=== PATIENT | male | born 1985 | race Caucasian/White ===

== ENCOUNTER 2017-05-01 06:05 | Observation (INO) | payer SELFPAY ==
[2017-05-01] MEDS ORDERED: Aspirin 81 MG Tab.Chew PO ONE (06:19)
[2017-05-01] MEDS ORDERED: Sodium Chloride 0.9% 2.5 ML Syringe FLUSH PRN (06:19)
[2017-05-01] MEDS ORDERED: Sodium Chloride 0.9% 10 ML Syringe FLUSH PRN (06:19)
[2017-05-01] MEDS ORDERED: Nitroglycerin 0.4 MG Tab.SL ONE (06:20)
[2017-05-01] MEDS ORDERED: Aspirin 81 MG Tab.Chew ONE (06:20)
[2017-05-01] MEDS: Nitroglycerin 0.4 MG Tab.SL SL SCH ×3 (06:26→06:37)
--- NOTE | 2017-05-01 06:30 | EDM.PDOC ---
ED HPI GENERAL MEDICAL PROBLEM - General Chief Complaint: Chest Pain Stated Complaint: CHEST PAIN Time Seen by Provider: 05/01/17 06:09 - History of Present Illness INITIAL COMMENTS - FREE TEXT/NARRATIVE: HISTORY AND PHYSICAL: History of present illness: The patient is a 31-year-old male with no stated cardiac pulmonary history who presents with acute onset of left-sided chest pain that woke him from sleep at 3 AM this morning. Patient said he adequately normal day yesterday and had a little abdominal discomfort but nothing that he would seek medical care for any eating drink normally. The patient said he was trying to quit smoking and in fact didn't smoke for day and a half and then did smoke yesterday. Does not use drugs and he has no prior cardiac testing or chest pain history. The patient says he went to bed and was sleeping normally when he woke suddenly from sleep at 3 AM with the chest discomfort which was left-sided radiating to her shoulder. At 3 AM he rated as a 7-8/10. The patient said he went back to sleep and woke up again at 4:30 and it had returned and he took one 81 mg aspirin. Currently he rates the chest pain as a 5/10. It is not associated with shortness of breath abdominal pain nausea lightheadedness or back pain. He says he has never had an episode like this before and he did no strenuous activity yesterday and had no upper respiratory symptoms. When he was initially brought back he did not feel sweaty but now in the department he does feel sweaty. He has no significant family history of cardiac disease and he has never been tested for cholesterol or lipid panel nor has he ever done a stress test. 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 He has no leg pain or swelling. The patient tells me he does have a history of hypertension but he has had episodes of elevated blood pressure but not as high as he is having this morning. 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 Review of systems: As per history of present illness and below otherwise all systems reviewed and negative. Past medical history: As per history of present illness and as reviewed below otherwise noncontributory. Surgical history: As per history of present illness and as reviewed below otherwise noncontributory. Social history: No reported history of drug or alcohol abuse. Family history: As per history of present illness and as reviewed below otherwise noncontributory. Physical exam: Gen.: Well-developed mildly overweight male who is nontoxic and vital signs been reviewed by me including his elevated blood pressure. HEENT: Atraumatic, normocephalic, pupils reactive, negative for conjunctival pallor or scleral icterus, mucous membranes moist, throat clear, neck supple, nontender, trachea midline. Lungs: Clear to auscultation, breath sounds equal bilaterally, chest nontender. Heart: S1S2, regular, negative for clicks, rubs, or JVD. Abdomen: Soft, nondistended, nontender. Negative for masses or hepatosplenomegaly. Negative for costovertebral tenderness. Pelvis: Stable nontender. Genitourinary: Deferred. Rectal: Deferred. Extremities: Atraumatic, negative for cords or calf pain. Neurovascular unremarkable. no pedal edema or leg asymmetry Neuro: Awake, alert, oriented. Cranial nerves II through XII unremarkable. Cerebellum unremarkable. Motor and sensory unremarkable throughout. Exam nonfocal. Skin: Normal turgor there is facial diaphoresis and there is no evidence of any rashes or lesions Diagnostics: EKG CBC CMP INR troponin chest x-ray Therapeutics: IV O2 monitor, 3 baby aspirin as patient took one at home, sublingual nitroglycerin, nitroglycerin paste 0635: After 3 sublingual nitroglycerin the patient's blood pressure is much improved at 140s over 90s and his chest pain is gone. I discussed with him the probability and need for observation admission and pending the lab results he is agreeable to do this. 0642: Case was discussed with our hospitalist Dr. Simmons who accepts the patient for observation admission and is aware that the labs had to be redrawn due to hemolysis. He says he will follow up all the lab results and agrees with the Nitropaste. I will endorse the case to Dr. Shell to be aware of this patient and to intervene as needed and necessary and to check the labs as well the chest x-ray Impression: Chest pain rule out ACS Definitive disposition and diagnosis as appropriate pending reevaluation and review of above. Left Chest Pain Score (Numeric/FACES): 4 - Related Data Allergies Allergy/AdvReac Type Severity Reaction Status Date / Time No Known Allergies Allergy Verified 05/01/17 06:14 Home Meds: Home Meds . [No Known Home Meds] 05/01/17 [History] ED ROS GENERAL - Review of Systems Review Of Systems: ROS reveals no pertinent complaints other than HPI. ED EXAM, GENERAL - Physical Exam Exam: See Below (See dictation) Course - Vital Signs Last Recorded V/S: Last Vital Signs Temp 36.7 C 05/01/17 06:15 Pulse 70 05/01/17 06:15 Resp 16 05/01/17 06:15 BP 165/114 H 05/01/17 06:15 Pulse Ox 99 05/01/17 06:15 - Orders/Labs/Meds Orders: Active Orders 24 hr Category Date Time Status Patient Status [ADT] Stat ADT 05/01/17 06:42 Ordered Cardiac Monitoring [RC] . DIRECTED Care 05/01/17 06:19 Active EKG Documentation Completion [RC] STAT Care 05/01/17 06:19 Active Oxygen Therapy, ED [RC] ASDIRECTED Care 05/01/17 06:19 Active Pulse Oximetry [RC] ASDIRECTED Care 05/01/17 06:19 Active Chest 1V Frontal [CR] Stat Exams 05/01/17 06:19 Ordered CBC WITH AUTO DIFF [HEME] Stat Lab 05/01/17 06:19 Ordered COMPREHENSIVE METABOLIC PN,CMP [CHEM] Stat Lab 05/01/17 06:19 Ordered INR,PT,PROTHROMBIN TIME [COAG] Stat Lab 05/01/17 06:19 Ordered TROPONIN I [CHEM] Stat Lab 05/01/17 06:19 Ordered Aspirin Med 05/01/17 06:20 Once 243 mg .ROUTE .STK-MED ONE Aspirin Med 05/01/17 06:19 Once 243 mg PO ONETIME ONE Nitroglycerin [Nitro-Bid 2%] Med 05/01/17 06:42 Once 0.5 gm TOP ONETIME ONE Nitroglycerin [Nitrostat] Med 05/01/17 06:30 Ordered 0.4 mg SL Q5M Sodium Chloride 0.9% [Saline Flush] Med 05/01/17 06:19 Ordered 10 ml FLUSH ASDIRECTED PRN Sodium Chloride 0.9% [Saline Flush] Med 05/01/17 06:19 Ordered 2.5 ml FLUSH ASDIRECTED PRN Saline Lock Insert [OM.PC] Stat Oth 05/01/17 06:19 Ordered Medication Orders Sodium Chloride (Saline Flush) 10 ml FLUSH ASDIRECTED PRN PRN Reason: Keep Vein Open Sodium Chloride (Saline Flush) 2.5 ml FLUSH ASDIRECTED PRN PRN Reason: Keep Vein Open Meds: Medications Generic Name Dose Route Start Last Admin Trade Name Freq PRN Reason Stop Dose Admin Sodium Chloride 10 ml 05/01/17 06:19 Saline Flush FLUSH ASDIRECTED PRN Keep Vein Open Sodium Chloride 2.5 ml 05/01/17 06:19 Saline Flush FLUSH ASDIRECTED PRN Keep Vein Open Discontinued Medications Generic Name Dose Route Start Last Admin Trade Name Freq PRN Reason Stop Dose Admin Aspirin Confirm 05/01/17 06:20 Aspirin Administered 05/01/17 06:21 Dose 243 mg .ROUTE .STK-MED ONE Aspirin 243 mg 05/01/17 06:19 Aspirin PO 05/01/17 06:20 ONETIME ONE Nitroglycerin Confirm 05/01/17 06:20 Nitrostat Administered 05/01/17 06:21 Dose 0.4 mg .ROUTE .STK-MED ONE Nitroglycerin 0.4 mg 05/01/17 06:30 Nitrostat SL 05/01/17 06:41 Q5M MARTIN Departure - Departure Time of Disposition: 06:48 Disposition: Refer to Observation Condition: Good Clinical Impression: Acute coronary syndrome - Discharge Information Forms: ED Department Discharge - My Orders Last 24 Hours: My Active Orders 05/01/17 06:19 Cardiac Monitoring [RC] . DIRECTED EKG Documentation Completion [RC] STAT Oxygen Therapy, ED [RC] ASDIRECTED Pulse Oximetry [RC] ASDIRECTED Chest 1V Frontal [CR] Stat CBC WITH AUTO DIFF [HEME] Stat COMPREHENSIVE METABOLIC PN,CMP [CHEM] Stat INR,PT,PROTHROMBIN TIME [COAG] Stat TROPONIN I [CHEM] Stat Aspirin 243 mg PO ONETIME ONE Sodium Chloride 0.9% [Saline Flush] 10 ml FLUSH ASDIRECTED PRN Sodium Chloride 0.9% [Saline Flush] 2.5 ml FLUSH ASDIRECTED PRN Saline Lock Insert [OM.PC] Stat 05/01/17 06:30 Nitroglycerin [Nitrostat] 0.4 mg SL Q5M 05/01/17 06:42 Patient Status [ADT] Stat Nitroglycerin [Nitro-Bid 2%] 0.5 gm TOP ONETIME ONE - Assessment/Plan Last 24 Hours: My Active Orders 05/01/17 06:19 Cardiac Monitoring [RC] . DIRECTED EKG Documentation Completion [RC] STAT Oxygen Therapy, ED [RC] ASDIRECTED Pulse Oximetry [RC] ASDIRECTED Chest 1V Frontal [CR] Stat CBC WITH AUTO DIFF [HEME] Stat COMPREHENSIVE METABOLIC PN,CMP [CHEM] Stat INR,PT,PROTHROMBIN TIME [COAG] Stat TROPONIN I [CHEM] Stat Aspirin 243 mg PO ONETIME ONE Sodium Chloride 0.9% [Saline Flush] 10 ml FLUSH ASDIRECTED PRN Sodium Chloride 0.9% [Saline Flush] 2.5 ml FLUSH ASDIRECTED PRN Saline Lock Insert [OM.PC] Stat 05/01/17 06:30 Nitroglycerin [Nitrostat] 0.4 mg SL Q5M 05/01/17 06:42 Patient Status [ADT] Stat Nitroglycerin [Nitro-Bid 2%] 0.5 gm TOP ONETIME ONE
[2017-05-01] MEDS ORDERED: Nitroglycerin 2% Oint 1 GM UD Packet TOP ONE ×2 (06:42→12:57)
[2017-05-01] MEDS ORDERED: Nitroglycerin 2% Oint 1 GM UD Packet ONE (06:46)
[2017-05-01] MEDS ORDERED: Sodium Chloride 0.9% 1,000 ML IV ONE (06:53)
[2017-05-01 07:17] LABS: CHLORIDE,CL 107 mmol/L (98-110); SODIUM,NA 139 mmol/L (136-146)
[2017-05-01] MEDS ORDERED: Acetaminophen 325 MG Tab PO PRN (08:46)
[2017-05-01] MEDS ORDERED: Temazepam 15 MG Cap PO PRN (08:46)
--- NOTE | 2017-05-01 08:57 | PCM.HP ---
H&P History of Present Illness - General Date of Service: 05/01/17 Admit Problem/Dx: Admission Diagnosis/Problem Admission Diagnosis/Problem Chest pain Source of Information: Patient, Provider - History of Present Illness Initial Comments - Free Text/Narative: He awoke from sleep about 0200 with chest pain. He took aspirin, went back to sleep and awoke with left sided chest pain. He came to the ER where he was noted to have a blood pressure of 170/110 mm Hg. He is asymptomatic now. He is trying to quit smoking. Left Chest Pain Score (Numeric/FACES): 4 - Related Data Allergies/Adverse Reactions: Allergies Allergy/AdvReac Type Severity Reaction Status Date / Time No Known Allergies Allergy Verified 05/01/17 06:14 Home Medications: Home Meds . [No Known Home Meds] 05/01/17 [History] Past Medical History Cardiovascular History: Denies: Heart Failure, High Cholesterol, Hypertension Respiratory History: Denies: COPD Gastrointestinal History: Denies: Cirrhosis Genitourinary History: Denies: Chronic Renal Insuffiency Neurological History: Denies: CVA Endocrine/Metabolic History: Denies: Diabetes, Type I, Diabetes, Type II Oncologic (Cancer) History: Reports: None - Past Surgical History Musculoskeletal Surgical History: Reports: Arthroscopic Procedure Social & Family History - Family History Family Medical History: Noncontributory - Tobacco Use Smoking Status *Q: Current Every Day Smoker Years of Tobacco use: 15 Packs/Tins Daily: 1 - Alcohol Use Alcohol Use Comment: rare alcohol use - Recreational Drug Use Recreational Drug Use: No H&P Review of Systems - Review of Systems: Review Of Systems: See Below General: Denies: Fever, Chills Pulmonary: Denies: Shortness of Breath, Wheezing, Cough, Sputum, Hemoptysis Cardiovascular: Reports: Chest Pain Gastrointestinal: Denies: Abdominal Pain, Black Stool, Bloody Stool, Hematemesis , Hematochezia Genitourinary: Denies: Hematuria Exam - Exam Exam: See Below - Vital Signs Vital Signs: Last Vital Signs Temp 97.0 F 05/01/17 08:17 Pulse 61 05/01/17 08:17 Resp 20 05/01/17 08:17 BP 174/96 H 05/01/17 08:17 Pulse Ox 98 05/01/17 08:17 Weight: 107 kg - Exam General: Alert, Oriented HEENT: Mucosa Moist & [place] Neck: Supple, Trachea Midline Lungs: Clear to Auscultation, Normal Respiratory Effort Cardiovascular: Regular Rate, Regular Rhythm GI/Abdominal Exam: Soft, Non-Tender (Male) Exam: Deferred Rectal (Males) Exam: Deferred Extremities: No Pedal Edema Neurological: Cranial Nerves Intact, Normal Speech Neuro Extensive - Motor, Sensory, Reflexes: No: Facial palsy (L), Facial Palsy ( R), Hemeplagia (R), Hemeplagia (L) Psychiatric: Alert - Patient Data Lab Results Last 24 hrs: Laboratory Results - last 24 hr 05/01/17 05/01/17 05/01/17 Range/Units 06:47 06:47 06:47 WBC 12.02 H (4.0-11.0) K/uL RBC 5.30 (4.50-5.90) M/uL Hgb 16.2 (13.0-17.0) g/dL Hct 47.7 (38.0-50.0) % MCV 90.0 (80.0-98.0) fL MCH 30.6 (27.0-32.0) pg MCHC 34.0 (31.0-37.0) g/dL RDW Std Deviation 43.0 (28.0-62.0) fl RDW Coeff of Douglas 13 (11.0-15.0) % Plt Count 255 (150-400) K/uL MPV 10.60 (7.40-12.00) fL Neut % (Auto) 78.0 (48.0-80.0) % Lymph % (Auto) 15.1 L (16.0-40.0) % [place] % (Auto) 5.6 (0.0-15.0) % Eos % (Auto) 1.1 (0.0-7.0) % Baso % (Auto) 0.2 (0.0-1.5) % Neut # (Auto) 9.4 H (1.4-5.7) K/uL Lymph # (Auto) 1.8 (0.6-2.4) K/uL [place] # (Auto) 0.7 (0.0-0.8) K/uL Eos # (Auto) 0.1 (0.0-0.7) K/uL Baso # (Auto) 0.0 (0.0-0.1) K/uL Nucleated RBC % 0.0 /100WBC Nucleated RBCs # 0 K/uL INR 1.00 (0.86-1.11) APTT 25.5 (18.6-31.3) SEC Sodium 139 (136-146) mmol/L Potassium 4.5 (3.5-5.1) mmol/L Chloride 107 (98-110) mmol/L Carbon Dioxide 24 (21-31) mmol/L BUN 11 (6.0-23.0) mg/dL Creatinine 0.9 (0.6-1.5) mg/dL Est Cr Clr Drug Dosing 128.14 mL/min Estimated GFR (MDRD) > 60.0 ml/min Glucose 105 (60-110) mg/dL Calcium 9.2 (8.8-10.8) mg/dL Magnesium (1.5-2.3) mEq/L Total Bilirubin 0.5 (0.1-1.5) mg/dL AST 21 (5-40) IU/L ALT 29 (8-54) IU/L Alkaline Phosphatase 57 (40-150) Troponin I < 0.10 (0.0-0.29) NG/ML Total Protein 7.1 (6.0-8.0) g/dL Albumin 4.2 (3.5-5.0) g/dL Globulin 2.9 (2.0-3.5) g/dL Albumin/Globulin Ratio 1.4 (1.3-2.8) 05/01/17 Range/Units 06:47 WBC (4.0-11.0) K/uL RBC (4.50-5.90) M/uL Hgb (13.0-17.0) g/dL Hct (38.0-50.0) % MCV (80.0-98.0) fL MCH (27.0-32.0) pg MCHC (31.0-37.0) g/dL RDW Std Deviation (28.0-62.0) fl RDW Coeff of Douglas (11.0-15.0) % Plt Count (150-400) K/uL MPV (7.40-12.00) fL Neut % (Auto) (48.0-80.0) % Lymph % (Auto) (16.0-40.0) % [place] % (Auto) (0.0-15.0) % Eos % (Auto) (0.0-7.0) % Baso % (Auto) (0.0-1.5) % Neut # (Auto) (1.4-5.7) K/uL Lymph # (Auto) (0.6-2.4) K/uL [place] # (Auto) (0.0-0.8) K/uL Eos # (Auto) (0.0-0.7) K/uL Baso # (Auto) (0.0-0.1) K/uL Nucleated RBC % /100WBC Nucleated RBCs # K/uL INR (0.86-1.11) APTT (18.6-31.3) SEC Sodium (136-146) mmol/L Potassium (3.5-5.1) mmol/L Chloride (98-110) mmol/L Carbon Dioxide (21-31) mmol/L BUN (6.0-23.0) mg/dL Creatinine (0.6-1.5) mg/dL Est Cr Clr Drug Dosing mL/min Estimated GFR (MDRD) ml/min Glucose (60-110) mg/dL Calcium (8.8-10.8) mg/dL Magnesium 1.8 (1.5-2.3) mEq/L Total Bilirubin (0.1-1.5) mg/dL AST (5-40) IU/L ALT (8-54) IU/L Alkaline Phosphatase (40-150) Troponin I (0.0-0.29) NG/ML Total Protein (6.0-8.0) g/dL Albumin (3.5-5.0) g/dL Globulin (2.0-3.5) g/dL Albumin/Globulin Ratio (1.3-2.8) Result Diagrams: 05/01/17 06:47 05/01/17 06:47 *Q Meaningful Use (ADM) - VTE *Q VTE Criteria *Q: - Stroke *Q Stroke Criteria *Q: - AMI *Q AMI Criteria *Q: - Problem List (1) Chest pain SNOMED Code(s): 75838495 ICD Code: R07.9 - CHEST PAIN, UNSPECIFIED Status: Acute Current Visit: Yes (2) Hypertension SNOMED Code(s): 96027698 ICD Code: I10 - ESSENTIAL (PRIMARY) HYPERTENSION Status: Acute Current Visit: Yes Problem List Initiated/Reviewed/Updated: Yes Orders Last 24hrs: Active Orders 24 hr Category Date Time Status Communication Order [RC] PER UNIT ROUTINE Care 05/01/17 08:46 Ordered EKG Documentation Completion [RC] ROUTINE Care 05/01/17 12:00 Ordered Oxygen Therapy [RC] PRN Care 05/01/17 08:46 Ordered VTE/DVT Education [RC] PER UNIT ROUTINE Care 05/01/17 08:46 Ordered Vital Signs [RC] Q4H Care 05/01/17 08:46 Ordered Regular Diet [DIET] Diet 05/01/17 Breakfast Ordered LIPID PANEL [CHEM] Routine Lab 05/01/17 08:45 Ordered MAGNESIUM [CHEM] Routine Lab 05/01/17 08:45 Ordered TROPONIN I [CHEM] Q6H Lab 05/01/17 12:00 Ordered TROPONIN I [CHEM] Q6H Lab 05/01/17 18:00 Ordered Acetaminophen [Tylenol] Med 05/01/17 08:46 Ordered 650 mg PO Q4H PRN Aspirin Med 05/02/17 09:00 Ordered 81 mg PO DAILY Lisinopril [Prinivil] Med 05/01/17 09:00 Ordered 20 mg PO DAILY Nitroglycerin [Nitro-Bid 2%] Med 05/01/17 06:46 Once 1 gm .ROUTE .STK-MED ONE Sodium Chloride 0.9% [Normal Saline] 1,000 ml Med 05/01/17 06:53 Active IV STAT Temazepam [Restoril] Med 05/01/17 08:46 Ordered 15 mg PO BEDTIME PRN Resuscitation Status Routine Resus Stat 05/01/17 08:46 Ordered Medication Orders Acetaminophen (Tylenol) 650 mg PO Q4H PRN PRN Reason: Pain (Mild 1-3)/fever Aspirin (Aspirin) 81 mg PO DAILY MARTIN Sodium Chloride (Normal Saline) 1,000 mls @ 100 mls/hr IV STAT ONE Stop: 05/01/17 16:52 Last Admin: 05/01/17 06:27 Dose: 100 mls/hr Lisinopril (Prinivil) 20 mg PO DAILY MARTIN Sodium Chloride (Saline Flush) 10 ml FLUSH ASDIRECTED PRN PRN Reason: Keep Vein Open Sodium Chloride (Saline Flush) 2.5 ml FLUSH ASDIRECTED PRN PRN Reason: Keep Vein Open Temazepam (Restoril) 15 mg PO BEDTIME PRN PRN Reason: Sleep Assessment/Plan Comment:: EKG shows ST elevation c/w early repolarization serial troponins/ repeat EKG treat HTN lipid panel arrange outpatient stress discharge this evening if stable. Jaycob Simmons MD
[2017-05-01] MEDS ORDERED: Lisinopril 10 MG Tab PO SCH (09:00)
--- NOTE | 2017-05-01 10:39 | CR ---
EXAM DATE: 05/01/17 PATIENT'S AGE: 31 Patient: WILLIAM QUINONEZ Facility: [place], [place] Site . Site : [id number] Study: XRay Chest [id number] 7:06:41 AM Ordering Physician: Mejia Almendarez Final Report: INDICATION: Chest pain COMPARISON: none TECHNIQUE: Portable AP erect chest performed at 6:54 a.m. FINDINGS: The lungs are clear. There is no evidence of pneumothorax. The heart, mediastinum and pulmonary vessels are of normal size. There is no evidence of pleural fluid. IMPRESSION: Negative chest. Dictated by Corwin Kim MD @ May 01 2017 7:08AM (Electronic Signature) Report Signed by Proxy. FLORENCIO
[2017-05-01] MEDS ORDERED: Enoxaparin 100 MG/1 ML Syringe SUBCUT ONE (12:49)
--- NOTE | 2017-05-01 12:56 | PCM.DCSUM1 ---
Discharge Summary - Hospital Course Brief History: He was admitted for chest pain. - Discharge Data Discharge Date: 05/01/17 Discharge Disposition: Home, Self-Care 01 Condition: Fair - Discharge Diagnosis/Problem(s) (1) Chest pain SNOMED Code(s): 89809554 ICD Code: R07.9 - CHEST PAIN, UNSPECIFIED Status: Acute Current Visit: Yes (2) Hypertension SNOMED Code(s): 65451905 ICD Code: I10 - ESSENTIAL (PRIMARY) HYPERTENSION Status: Acute Current Visit: Yes - Patient Summary/Data Hospital Course: He was admitted for chest pain. His chest pain resolved in the ED. His initial EKG showed upsloping ST elevation V1 and V2 c/w early repolarization. He remained pain free in the hospital. However , his second troponin was elevated at 1.11. His repeat EKG showed an increase in the ST elevation in V1 and V2. I advised the patient and I spoke with DR Triana, CLAUDIA Rolleity [facility] who agrees to accept in transfer. - Discharge Plan Home Medications: Home Meds . [No Known Home Meds] 05/01/17 [History] Forms: ED Department Discharge Referrals: PCP,None [Primary Care Provider] - - Patient Data Vitals - Most Recent: Last Vital Signs Temp 97.2 F 05/01/17 11:36 Pulse 67 05/01/17 11:36 Resp 20 05/01/17 11:36 BP 139/87 05/01/17 11:36 Pulse Ox 98 05/01/17 11:36 Weight - Most Recent: 104.7 kg I&O - Last 24 hours: Intake & Output 04/30/17 05/01/17 05/01/17 22:59 06:59 14:59 Intake Total 299 Balance 299 Lab Results - Last 24 hrs: Laboratory Results - last 24 hr 05/01/17 05/01/17 05/01/17 Range/Units 06:43 06:47 06:47 WBC 12.02 H (4.0-11.0) K/uL RBC 5.30 (4.50-5.90) M/uL Hgb 16.2 (13.0-17.0) g/dL Hct 47.7 (38.0-50.0) % MCV 90.0 (80.0-98.0) fL MCH 30.6 (27.0-32.0) pg MCHC 34.0 (31.0-37.0) g/dL RDW Std Deviation 43.0 (28.0-62.0) fl RDW Coeff of Douglas 13 (11.0-15.0) % Plt Count 255 (150-400) K/uL MPV 10.60 (7.40-12.00) fL Neut % (Auto) 78.0 (48.0-80.0) % Lymph % (Auto) 15.1 L (16.0-40.0) % [place] % (Auto) 5.6 (0.0-15.0) % Eos % (Auto) 1.1 (0.0-7.0) % Baso % (Auto) 0.2 (0.0-1.5) % Neut # (Auto) 9.4 H (1.4-5.7) K/uL Lymph # (Auto) 1.8 (0.6-2.4) K/uL [place] # (Auto) 0.7 (0.0-0.8) K/uL Eos # (Auto) 0.1 (0.0-0.7) K/uL Baso # (Auto) 0.0 (0.0-0.1) K/uL Nucleated RBC % 0.0 /100WBC Nucleated RBCs # 0 K/uL INR (0.86-1.11) APTT (18.6-31.3) SEC Sodium 139 (136-146) mmol/L Potassium 4.5 (3.5-5.1) mmol/L Chloride 107 (98-110) mmol/L Carbon Dioxide 24 (21-31) mmol/L BUN 11 (6.0-23.0) mg/dL Creatinine 0.9 (0.6-1.5) mg/dL Est Cr Clr Drug Dosing 128.14 mL/min Estimated GFR (MDRD) > 60.0 ml/min Glucose 105 (60-110) mg/dL Calcium 9.2 (8.8-10.8) mg/dL Magnesium (1.5-2.3) mEq/L Total Bilirubin 0.5 (0.1-1.5) mg/dL AST 21 (5-40) IU/L ALT 29 (8-54) IU/L Alkaline Phosphatase 57 (40-150) Troponin I < 0.10 (0.0-0.29) NG/ML Total Protein 7.1 (6.0-8.0) g/dL Albumin 4.2 (3.5-5.0) g/dL Globulin 2.9 (2.0-3.5) g/dL Albumin/Globulin Ratio 1.4 (1.3-2.8) Triglycerides 84 (10-190) mg/dL Cholesterol 164 (131-240) mg/dL LDL Cholesterol, Calc 117 (60-180) mg/dL VLDL Cholesterol 17 (5-55) mg/dL HDL Cholesterol 30 L (40-80) mg/dL Cholesterol/HDL Ratio 5.5 (3.3-6.0) 05/01/17 05/01/17 05/01/17 Range/Units 06:47 06:47 11:55 WBC (4.0-11.0) K/uL RBC (4.50-5.90) M/uL Hgb (13.0-17.0) g/dL Hct (38.0-50.0) % MCV (80.0-98.0) fL MCH (27.0-32.0) pg MCHC (31.0-37.0) g/dL RDW Std Deviation (28.0-62.0) fl RDW Coeff of Douglas (11.0-15.0) % Plt Count (150-400) K/uL MPV (7.40-12.00) fL Neut % (Auto) (48.0-80.0) % Lymph % (Auto) (16.0-40.0) % [place] % (Auto) (0.0-15.0) % Eos % (Auto) (0.0-7.0) % Baso % (Auto) (0.0-1.5) % Neut # (Auto) (1.4-5.7) K/uL Lymph # (Auto) (0.6-2.4) K/uL [place] # (Auto) (0.0-0.8) K/uL Eos # (Auto) (0.0-0.7) K/uL Baso # (Auto) (0.0-0.1) K/uL Nucleated RBC % /100WBC Nucleated RBCs # K/uL INR 1.00 (0.86-1.11) APTT 25.5 (18.6-31.3) SEC Sodium (136-146) mmol/L Potassium (3.5-5.1) mmol/L Chloride (98-110) mmol/L Carbon Dioxide (21-31) mmol/L BUN (6.0-23.0) mg/dL Creatinine (0.6-1.5) mg/dL Est Cr Clr Drug Dosing mL/min Estimated GFR (MDRD) ml/min Glucose (60-110) mg/dL Calcium (8.8-10.8) mg/dL Magnesium 1.8 (1.5-2.3) mEq/L Total Bilirubin (0.1-1.5) mg/dL AST (5-40) IU/L ALT (8-54) IU/L Alkaline Phosphatase (40-150) Troponin I 1.11 H* (0.0-0.29) NG/ML Total Protein (6.0-8.0) g/dL Albumin (3.5-5.0) g/dL Globulin (2.0-3.5) g/dL Albumin/Globulin Ratio (1.3-2.8) Triglycerides (10-190) mg/dL Cholesterol (131-240) mg/dL LDL Cholesterol, Calc (60-180) mg/dL VLDL Cholesterol (5-55) mg/dL HDL Cholesterol (40-80) mg/dL Cholesterol/HDL Ratio (3.3-6.0) Med Orders - Current: Current Medications Acetaminophen (Tylenol) 650 mg PO Q4H PRN PRN Reason: Pain (Mild 1-3)/fever Aspirin (Aspirin) 81 mg PO DAILY [facility] Enoxaparin Sodium (Lovenox) 100 mg SUBCUT ONETIME ONE Stop: 05/01/17 12:50 Lisinopril (Prinivil) 20 mg PO DAILY [facility] Last Admin: 05/01/17 09:21 Dose: 20 mg Sodium Chloride (Saline Flush) 10 ml FLUSH ASDIRECTED PRN PRN Reason: Keep Vein Open Sodium Chloride (Saline Flush) 2.5 ml FLUSH ASDIRECTED PRN PRN Reason: Keep Vein Open Temazepam (Restoril) 15 mg PO BEDTIME PRN PRN Reason: Sleep Discontinued Medications Aspirin (Aspirin) Confirm Administered Dose 243 mg .ROUTE .STK-MED ONE Stop: 05/01/17 06:21 Last Admin: 05/01/17 06:57 Dose: Not Given Aspirin (Aspirin) 243 mg PO ONETIME ONE Stop: 05/01/17 06:20 Last Admin: 05/01/17 06:23 Dose: 243 mg Sodium Chloride (Normal Saline) 1,000 mls @ 100 mls/hr IV STAT ONE Stop: 05/01/17 16:52 Last Admin: 05/01/17 06:27 Dose: 100 mls/hr Nitroglycerin (Nitrostat) Confirm Administered Dose 0.4 mg .ROUTE .STK-MED ONE Stop: 05/01/17 06:21 Last Admin: 05/01/17 06:57 Dose: Not Given Nitroglycerin (Nitrostat) 0.4 mg SL Q5M MARTIN Stop: 05/01/17 06:41 Last Admin: 05/01/17 06:37 Dose: 0.4 mg Nitroglycerin (Nitro-Bid 2%) 0.5 gm TOP ONETIME ONE Stop: 05/01/17 06:43 Last Admin: 05/01/17 06:52 Dose: 0.5 gm Nitroglycerin (Nitro-Bid 2%) Confirm Administered Dose 1 gm .ROUTE .STK-MED ONE Stop: 05/01/17 06:47 Last Admin: 05/01/17 06:57 Dose: Not Given *Q Meaningful Use (DIS) - VTE *Q VTE Criteria *Q: - Stroke *Q Stroke Criteria *Q: - AMI *Q AMI Criteria *Q:
[2017-05-01] MEDS ORDERED: Clopidogrel 75 MG Tab PO ONE (13:15)
[2017-05-02] MEDS ORDERED: Aspirin 81 MG Tab.Chew PO SCH (09:00)
== END 2017-05-01 13:46 ==
LOC: MW.ED 06:05 → MW.MS 06:42
PROVIDERS: ADMIT Family Medicine; ATTEND Family Medicine
DX: R07.9 Chest pain, unspecified (principal); I10 Essential (primary) hypertension; F17.200 Nicotine dependence, unspecified, uncomplicated; Z98.890 Other specified postprocedural states
CPT/HCPCS: 36415; 71010; 80053; 80061; 83735; 84484; 85025; 85610; 85730; 93005; 96360; 96361; 96372; 99285; A9270; G0378; J1650; J7040

== ENCOUNTER 2017-10-18 11:51 | Emergency (ER) | payer SELFPAY ==
[2017-10-18] MEDS ORDERED: predniSONE 20 MG Tab PO ONE (12:38)
[2017-10-18] MEDS ORDERED: Ketorolac 60 MG/2 ML SDV IM ONE (12:38)
--- NOTE | 2017-10-18 12:45 | EDM.PDOC ---
ED HPI GENERAL MEDICAL PROBLEM - General Chief Complaint: Back Pain or Injury Stated Complaint: LOWER BACK PAIN Time Seen by Provider: 10/18/17 12:27 - History of Present Illness INITIAL COMMENTS - FREE TEXT/NARRATIVE: HISTORY AND PHYSICAL: History of present illness: The patient is a 32-year-old male who presents with a 2 to three-week history of lumbar back pain that started after he decided he was going to begin working out including running and doing cardio. He said that started gradually and seemed to worsen and he has seen the chiropractor 6-7 times over the last 2 weeks. He is use [id number] Tylenol and ibuprofen and feels that the chiropractor has helped but he has not done any imaging and he is getting concerned because of it in eating with his work. The patient is from [place] but has been staying here locally but has not connected with our clinic. He states he has a history of a "curved spine" but has no other back issues. He tells me the pain originates in the middle of his lumbar back and will occasionally radiate down his right leg but there is no numbness or weakness to his leg and no bowel or bladder disturbances. He says that certain movements will grab him and trigger muscle spasm and he is most comfortable when he is standing. The chiropractor has been doing manipulation and TENS but not much more and he has not prescribed any medication. He has not had any falls or direct trauma to his back that he is aware of but he does do a lot of lifting twisting and moving for his job Review of systems: As per history of present illness and below otherwise all systems reviewed and negative. Past medical history: As per history of present illness and as reviewed below otherwise noncontributory. Surgical history: As per history of present illness and as reviewed below otherwise noncontributory. Social history: No reported history of drug or alcohol abuse. Family history: As per history of present illness and as reviewed below otherwise noncontributory. Physical exam: General: Well-developed well-nourished man who is nontoxic and vital signs have been reviewed by me. Patient is more comfortable standing but can sit and moves very easily and quickly without distress. HEENT: Atraumatic, normocephalic, negative for conjunctival pallor or scleral icterus, mucous membranes moist, throat clear, neck supple, nontender, trachea midline. Lungs: Clear to auscultation, breath sounds equal bilaterally, chest nontender. Heart: S1S2, regular in rhythm no overt murmurs Abdomen: Soft, nondistended, nontender. NABS Pelvis: Stable nontender. Genitourinary: Deferred. Rectal: Deferred. Extremities: Atraumatic, negative for cords or calf pain. Neurovascular unremarkable. Neuro: Awake, alert, oriented. Cranial nerves II through XII unremarkable. Cerebellum unremarkable. Motor and sensory unremarkable throughout. Exam nonfocal. Patellar reflexes are +2/4 bilaterally and inversion and eversion of the feet is intact. Dorsi and plantar flexion is intact inclusive of the great toe. Feet is intact. Back: There are no midline step-offs or defects appreciated in the thoracic or lumbar spine and no posterior pelvis tenderness or joint tenderness bilaterally. There is some reproducible tenderness at the lumbar spine area without any defects or deformities and the patient does have a very large spine on palpation. There is some minimal muscle tenderness in the paraspinals more on the right but there is no discrete spasm appreciated and there is no sciatic groove tenderness on palpation. Diagnostics: Lumbar spine x-rays--patient states he has not had baseline x-rays performed so I will do that today Therapeutics: Toradol prednisone--patient drove himself and wants to be able to drive home so does not want anything that we will compromised that I did discuss with the patient that he needs follow-up in the clinic to see if the care plan of steroids muscle relaxers and anti-inflammatories and pain medication that I will prescribe today will improve his pain. We discussed that he may need physical therapy and he may need an outpatient MRI if his symptoms progress or evolve. I will give him those appropriate referrals. Impression: Lumbar back pain with episodic sciatica right Definitive disposition and diagnosis as appropriate pending reevaluation and review of above. Right Lower Back Pain Score (Numeric/FACES): 5 - Related Data Allergies Allergy/AdvReac Type Severity Reaction Status Date / Time No Known Allergies Allergy Verified 10/18/17 12:26 Home Meds: Home Meds Aspirin 81 mg PO DAILY 10/18/17 [History] Clopidogrel [Plavix] 75 mg PO DAILY 10/18/17 [History] atorvaSTATin [Lipitor] 10 mg PO DAILY 10/18/17 [History] Past Medical History Oncologic (Cancer) History: Reports: None - Past Surgical History Musculoskeletal Surgical History: Reports: Arthroscopic Procedure Social & Family History - Family History Family Medical History: Noncontributory - Caffeine Use Caffeine Use: Reports: Coffee, Energy Drinks ED ROS GENERAL - Review of Systems Review Of Systems: ROS reveals no pertinent complaints other than HPI. ED EXAM, GENERAL - Physical Exam Exam: See Below (See dictation) Course - Vital Signs Last Recorded V/S: Last Vital Signs Temp 37.1 C 10/18/17 12:19 Pulse 101 H 10/18/17 12:19 Resp 18 10/18/17 12:19 BP 155/93 H 10/18/17 12:19 Pulse Ox 95 10/18/17 12:19 - Orders/Labs/Meds Orders: Active Orders 24 hr Category Date Time Status Lumbar Spine 2 or 3V [CR] Stat Exams 10/18/17 12:39 Taken Meds: Medications Discontinued Medications Generic Name Dose Route Start Last Admin Trade Name Freq PRN Reason Stop Dose Admin Ketorolac Tromethamine 60 mg 10/18/17 12:38 Toradol IM 10/18/17 12:39 ONETIME ONE Prednisone 60 mg 10/18/17 12:38 10/18/17 13:20 Prednisone PO 10/18/17 12:39 60 mg ONETIME ONE Administration Departure - Departure Time of Disposition: 13:22 Disposition: Home, Self-Care 01 Condition: Good Clinical Impression: Back pain of lumbar region with sciatica - Discharge Information Referrals: PCP,None [Primary Care Provider] - Forms: ED Department Discharge Additional Instructions: The following information is given to patients seen in the emergency department who are being discharged to home. This information is to outline your options for follow-up care. We provide all patients seen in our emergency department with a follow-up referral. The need for follow-up, as well as the timing and circumstances, are variable depending upon the specifics of your emergency department visit. If you don't have a primary care physician on staff, we will provide you with a referral. We always advise you to contact your personal physician following an emergency department visit to inform them of the circumstance of the visit and for follow-up with them and/or the need for any referrals to a consulting specialist. The emergency department will also refer you to a specialist when appropriate. This referral assures that you have the opportunity for followup care with a specialist. All of these measure are taken in an effort to provide you with optimal care, which includes your followup. Under all circumstances we always encourage you to contact your private physician who remains a resource for coordinating your care. When calling for followup care, please make the office aware that this follow-up is from your recent emergency room visit. If for any reason you are refused follow-up, please contact the [facility] emergency department at and ask to speak to the emergency department charge nurse [facility] [address] [address] Please take medications as prescribed and apply heat or ice for symptomatic relief. Try to do all activities both at work and at home very slowly including position changing. Please continue to work with the chiropractor as you choose and also call our clinic on Friday morning to schedule a follow-up appointment next week. Return to ER as needed and as discussed - My Orders Last 24 Hours: My Active Orders 10/18/17 12:39 Lumbar Spine 2 or 3V [CR] Stat - Assessment/Plan Last 24 Hours: My Active Orders 10/18/17 12:39 Lumbar Spine 2 or 3V [CR] Stat
[2017-10-18] MEDS ORDERED: predniSONE 20 MG Tab ONE (13:22)
--- NOTE | 2017-10-20 12:26 | CR ---
EXAM DATE: 10/18/17 PATIENT'S AGE: 32 Patient: WILLIAM QUINONEZ Facility: [place], [place] Site . Site : 1985 Study: XRay Spine Lumbar [id number] 1:03:13 PM Ordering Physician: Mejia Almendarez Final Report: INDICATION: PT started working out 3 weeks ago and has had lower back pain since then. Has seen a chiropractor several times but it has hardly helped with the pain. FINDINGS: Three views of the lumbar spine show normal height and alignment of lumbar vertebral bodies. No evidence of acute fracture or dislocation. No other bony or soft tissue abnormalities identified. Dictated by Porfirio Sharma MD @ 10/18/2017 1:19:48 PM Dictated by: Porfirio Sharma MD @ 10/18/2017 13:20:17 (Electronic Signature) Report Signed by Proxy. FLORENCIO
== END 2017-10-18 13:43 | disposition home or self-care (01) ==
LOC: MW.ED 11:51
DX: M54.41 Lumbago with sciatica, right side (principal); Z79.899 Other long term (current) drug therapy; Z79.82 Long term (current) use of aspirin; Z79.01 Long term (current) use of anticoagulants
CPT/HCPCS: 72100; 96372; 99283; A9270; J1885

== ENCOUNTER 2018-11-11 11:59 | Emergency (ER) | payer MEDICAID, OTHER ==
[2018-11-11] MEDS ORDERED: Ketorolac 60 MG/2 ML SDV IM ONE (12:30)
--- NOTE | 2018-11-11 12:32 | EDM.PDOC ---
ED HPI GENERAL MEDICAL PROBLEM - General Chief Complaint: Back Pain or Injury Stated Complaint: SCIATIC NERVE PAIN Time Seen by Provider: 11/11/18 12:27 Source of Information: Reports: Patient History Limitations: Reports: No Limitations - History of Present Illness INITIAL COMMENTS - FREE TEXT/NARRATIVE: HISTORY AND PHYSICAL: History of present illness: Patient is a 33-year-old male who presents to the emergency room today with complaints of right sided sciatic back pain. Patient reports that he does intermittently get this sciatic pain with strenuous activity at work. He states he noticed it after a long strenuous day at work approximately 2 days ago. He states the pain usually is alleviated by an adjustment from the chiropractor. He did see the chiropractor yesterday which has not alleviated his discomfort. He states he is still able to perform all his ADLs, although notices pain with long periods of sitting or having to bend over at the waist. He denies any injury, trauma or falls. Review of systems: As per history of present illness and below otherwise all systems reviewed and negative. Past medical history: As per history of present illness and as reviewed below otherwise noncontributory. Surgical history: As per history of present illness and as reviewed below otherwise noncontributory. Social history: See social history for further information Family history: As per history of present illness and as reviewed below otherwise noncontributory. Physical exam: General: Well-developed and well-nourished 33-year-old male. Alert and oriented. Nontoxic appearing and in no acute distress. HEENT: Atraumatic, normocephalic, pupils equal and reactive bilaterally, negative for conjunctival pallor or scleral icterus, mucous membranes moist, trachea midline. No drooling or trismus noted. No meningeal signs. No hot potato voice noted. Lungs: Clear to auscultation, breath sounds equal bilaterally. Heart: S1S2, regular rate and rhythm without overt murmur Abdomen: Soft, nondistended, nontender. Negative for masses Negative for costovertebral tenderness. Pelvis: Stable nontender. Genitourinary/Rectal: Deferred. C-spine/Back: No pinpoint vertebral tenderness upon palpation. No crepitus, step -offs or obvious deformities. Patient was ambulatory into the emergency room without difficulty or deficits. He does have some paraspinous muscular tenderness to the right lower lumbar region that radiates into his gluteus. He denies any numbness, tingling or saddle paresthesias. Denies any urinary or fecal incontinence. He is able to walk on his heels and toes without difficulty. Skin: Intact, warm, dry. No lesions or rashes noted. Extremities: Atraumatic, moves all extremities per self without difficulty or deficits, negative for cords or calf pain. Neurovascular unremarkable. Neuro: Awake, alert, oriented. Cranial nerves II through XII unremarkable. Cerebellum unremarkable. Motor and sensory unremarkable throughout. Exam nonfocal. Notes: X-ray shows no acute findings. Patient did have some relief with the Toradol. We 'll prescribe Flexeril, medication education was reviewed. Supportive care measures were reviewed and discussed. Voices understanding and is agreeable to plan of care. Denies any further questions or concerns at this time. Diagnostics: Lumbar back x-ray Therapeutics: Toradol IM Prescriptions: Flexeril (#20) Impression: Sciatic back pain Plan: 1. When resting please lay on a flat firm surface. Limit your immobility to prevent muscle stiffness, get up to ambulate/move around/gentle stretching multiple times throughout the day. May alternate heat and ice to the painful areas 2. Tylenol and/or Ibuprofen as needed for back pain. Take the prescribed Flexeril as directed. Flexeril as a muscle relaxant, this medication may cause drowsiness a do not take it will driving her needing to be functioning outside of the house. 3. Please follow-up with your primary care provider as we discussed. Return to the ED as needed and as discussed. Definitive disposition and diagnosis as appropriate pending reevaluation and review of above. Right Lower Back Pain Score (Numeric/FACES): 8 - Related Data Allergies Allergy/AdvReac Type Severity Reaction Status Date / Time No Known Allergies Allergy Verified 11/11/18 12:24 Home Meds: Home Meds Aspirin 81 mg PO DAILY 10/18/17 [History] Clopidogrel [Plavix] 75 mg PO DAILY 10/18/17 [History] atorvaSTATin [Lipitor] 10 mg PO DAILY 10/18/17 [History] Cyclobenzaprine [Flexeril] 10 mg PO TID PRN #20 tab 11/11/18 [Rx] Past Medical History Cardiovascular History: Reports: [place], Stents Other Cardiovascular History: had an irregular heartbeat 15 years ago, and stent placed in left anterior descending in 2017 Oncologic (Cancer) History: Reports: None - Infectious Disease History Infectious Disease History: Reports: Chicken Pox - Past Surgical History Musculoskeletal Surgical History: Reports: Arthroscopic Procedure Social & Family History - Family History Family Medical History: Noncontributory - Tobacco Use Smoking Status *Q: Unknown Ever Smoked - Caffeine Use Caffeine Use: Reports: Coffee, Energy Drinks - Recreational Drug Use Recreational Drug Use: No ED ROS GENERAL - Review of Systems Review Of Systems: ROS reveals no pertinent complaints other than HPI. ED EXAM,LOWER BACK PAIN/INJURY - Physical Exam Exam: See Below (See dictation) Course - Vital Signs Last Recorded V/S: Last Vital Signs Temp 96.1 F 11/11/18 12:22 Pulse 86 11/11/18 12:22 Resp 18 11/11/18 12:22 BP 124/87 11/11/18 12:22 Pulse Ox 94 L 11/11/18 12:22 - Orders/Labs/Meds Meds: Medications Discontinued Medications Generic Name Dose Route Start Last Admin Trade Name Freq PRN Reason Stop Dose Admin Ketorolac Tromethamine 60 mg 11/11/18 12:30 11/11/18 12:47 Toradol IM 11/11/18 12:31 60 mg ONETIME ONE Administration Departure - Departure Time of Disposition: 13:35 Disposition: Home, Self-Care 01 Clinical Impression: Sciatica Qualifiers: Laterality: right Qualified Code(s): M54.31 - Sciatica, right side - Discharge Information Prescriptions: Cyclobenzaprine [Flexeril] 10 mg PO TID PRN #20 tab PRN Reason: Muscle Spasm Instructions: Sciatica Referrals: PCP,None [Primary Care Provider] - Forms: ED Department Discharge Additional Instructions: The following information is given to patients seen in the emergency department who are being discharged to home. This information is to outline your options for follow-up care. We provide all patients seen in our emergency department with a follow-up referral. The need for follow-up, as well as the timing and circumstances, are variable depending upon the specifics of your emergency department visit. If you don't have a primary care physician on staff, we will provide you with a referral. We always advise you to contact your personal physician following an emergency department visit to inform them of the circumstance of the visit and for follow-up with them and/or the need for any referrals to a consulting specialist. The emergency department will also refer you to a specialist when appropriate. This referral assures that you have the opportunity for follow-up care with a specialist. All of these measure are taken in an effort to provide you with optimal care, which includes your follow-up. Under all circumstances we always encourage you to contact your private physician who remains a resource for coordinating your care. When calling for follow-up care, please make the office aware that this follow-up is from your recent emergency room visit. If for any reason you are refused follow-up, please contact the Emergency Department at and asked to speak to the emergency department charge nurse. Primary Care [address] [place] [id number] [place] [address] 1. When resting please lay on a flat firm surface. Limit your immobility to prevent muscle stiffness, get up to ambulate/move around/gentle stretching multiple times throughout the day. May alternate heat and ice to the painful areas 2. Tylenol as needed for back pain. Otherwise take the prescribed Flexeril and diclofenac as directed. Diclofenac is an anti-inflammatory so do not take any additional NSAIDs with this medication, such as ibuprofen or Aleve. Flexeril as a muscle relaxant, this medication may cause drowsiness a do not take it will driving her needing to be functioning outside of the house. 3. Please follow-up with your primary care provider as we discussed. Return to the ED as needed and as discussed.
--- NOTE | 2018-11-11 13:23 | CR ---
EXAMINATION: Lumbar spine HISTORY: Pain COMPARISON: 10/18/2017 TECHNIQUE: AP and lateral views FINDINGS: The lumbar spinal alignment is normal. The vertebral body heights appear maintained. SI joints are symmetric. Bone mineralization is normal. IMPRESSION: Grossly unremarkable lumbar spine.
== END 2018-11-11 13:55 | disposition home or self-care (01) ==
LOC: MW.ED 11:59
DX: M54.31 Sciatica, right side (principal); Z79.82 Long term (current) use of aspirin; Z79.899 Other long term (current) drug therapy; Z79.01 Long term (current) use of anticoagulants
CPT/HCPCS: 72100; 96372; 99283; J1885

== ENCOUNTER 2022-09-21 12:16 | Emergency (ER) | payer MEDICAID ==
[2022-09-21] MEDS ORDERED: Lidocaine 1% 5 ML VIAL INJECT ONE (12:48)
[2022-09-21] MEDS ORDERED: Diphtheria,Pertussis(Acell),Tetanus Vaccine 0.5 ML Syringe IM ONE (12:48)
== END 2022-09-21 13:30 | disposition home or self-care (01) ==
LOC: MW.ED 12:16
DX: S01.81XA Laceration without foreign body of other part of head, initial encounter (principal); I25.2 Old myocardial infarction; Z23 Encounter for immunization; Z79.82 Long term (current) use of aspirin; Z79.899 Other long term (current) drug therapy; W22.8XXA Striking against or struck by other objects, initial encounter
CPT/HCPCS: 12011; 90471; 90715; 99282; 99283-25; J3490